=== PATIENT | female | born 1960 | race Two or more races ===

== ENCOUNTER 2018-10-06 10:26 | Emergency (ER) | payer SELFPAY ==
[~2018-10-06] VITALS: Ht 160 cm; Wt 81.6 kg
[2018-10-06 10:37] VITALS: BP 114/73
[2018-10-06] MEDS ORDERED: DiphenhydrAMINE 50mg/ml Inj IVP ONE (11:00)
[2018-10-06] MEDS ORDERED: Solu-MEDROL 125mg Inj IVP ONE (11:00)
[2018-10-06 12:42] VITALS: BP 124/81
[2018-10-06] MEDS ORDERED: ONDANSETRON ODT4 MG BC (13:08)
[2018-10-06] MEDS ORDERED: DICYCLOMINE HCL10 MG PO (13:08)
[2018-10-06] MEDS ORDERED: DIPHENHYDRAMINE25 M1 ORAL (13:08)
[2018-10-06] MEDS ORDERED: PREDNISONE20 MG ORAL (13:08)
[2018-10-06] MEDS ORDERED: RANITIDINE HCL150 MG ORAL (13:08)
[2018-10-06 13:15] VITALS: BP 125/85
--- NOTE | 2018-10-07 07:45 | Emergency Room Report ---
History of Present Illness General Chief Complaint: Allergic Reaction Source: Patient Present Illness HPI 57-year-old female presents ED for evaluation. Patient brought from PMD office. PMD called stating that patient may have had a reaction to an allergy injection she received today. States she has received these injections in the past but states that shortly after receiving injection today she started to feel nauseous with vomiting and diarrhea. States that she also did eat some spicy food yesterday evening. Denies chest pain or shortness of breath. Denies tongue swelling or throat swelling. Denies rash. No other aggravating relieving factors. Denies any other associated symptoms Allergies: Coded Allergies: AMOXICILLIN (Verified Allergy, Unknown, 10/06/18) Cultivated Oat Pollen (Verified Allergy, Unknown, 10/06/18) SULFA (SULFONAMIDE ANTIBIOTICS) (Verified Allergy, Unknown, 10/06/18) Patient History Past Medical History: HTN, other Past Surgical History: none Pertinent Family History: none Social History: Denies: smoking, alcohol use, drug use Immunizations: UTD Reviewed Nursing Documentation: PMH: Agreed; PSxH: Agreed Nursing Documentation-PMH Past Medical History: No History, Except For Hx Cardiac Problems: Yes - cholesterol Hx Hypertension: Yes 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 Review of Systems All Other Systems: negative except mentioned in HPI Physical Exam Vital Signs Date Time Temp Pulse Resp B/P (MAP) Pulse Ox O2 Delivery O2 Flow Rate FiO2 10/06/18 10:31 97.3 100 25 99 Room Air 10/06/18 10:37 114/73 10/06/18 10:37 97 Sp02 EP Interpretation: reviewed, normal General Appearance: mild distress Head: normocephalic, atraumatic Eyes: bilateral eye normal inspection, bilateral eye PERRL ENT: hearing grossly normal, normal pharynx, no angioedema, normal voice Neck: full range of motion, supple/symm/no masses Respiratory: chest non-tender, lungs clear, normal breath sounds, speaking full sentences Cardiovascular #1: regular rate, rhythm, no edema Cardiovascular #2: 2+ carotid (R), 2+ carotid (L), 2+ radial (R), 2+ radial (L) , 2+ dorsalis pedis (R), 2+ dorsalis pedis (L) Gastrointestinal: normal bowel sounds, non tender, soft, non-distended, no guarding, no rebound Rectal: deferred Genitourinary: normal inspection, no CVA tenderness Musculoskeletal: back normal, gait/station normal, normal range of motion, non- tender Neurologic: alert, oriented x3, responsive, motor strength/tone normal, sensory intact, speech normal Psychiatric: judgement/insight normal, memory normal, mood/affect normal, no suicidal/homicidal ideation Reflexes: 3+ bicep (R), 3+ bicep (L), 3+ tricep (R), 3+ tricep (L), 3+ knee (R) , 3+ knee (L) Skin: normal color, no rash, warm/dry, well hydrated Lymphatic: no adenopathy Medical Decision Making Diagnostic Impression: Primary Impression: Gastroenteritis Additional Impression: Allergic reaction Qualified Codes: T78.40XA - Allergy, unspecified, initial encounter ER Course Hospital Course 57-year-old F presents to ED with vomiting and diarrhea shortly after recieving allergy injections today at PMD office differential diagnosis: allergic reaction, anaphylaxis, gastroenteritis Clinical course Patient placed on stretcher. On cardiac/vascular sonographer. After initial history and physical I ordered IV fluids, Zofran and pepcid, benedryl, solumedrol, Upon reassessment, patient states she feels better. Tolerating by mouth intake here Consideration for gastroenteritis versus allergic reaction to the injections. We will treat for both Discussed with PMD Dr. Pritchard; agrees that patient can be safely dicharged to home I feel this is a highly complex case requiring extensive working including EKG/ Rhythm strip, Xray/CT/US, Blood/urine lab work, repeat exams while in ED, and administration of strong opiates/narcotics for pain control, admission to hospital or close patient follow up. Diagnosis - gastroenteritis, allergic reaction Stable and discharged to home with prescriptions for Zantac, zofran, prednisone , benedryl, bentyl. Followup with PMD. Return to ED if symptoms recur or worsen Last Vital Signs Date Time Temp Pulse Resp B/P (MAP) Pulse Ox O2 Delivery O2 Flow Rate FiO2 10/06/18 13:15 97.0 85 20 125/85 100 Room Air 10/06/18 10:37 97 Status: improved Disposition: HOME, SELF-CARE Condition: Stable Scripts Prednisone* (PREDNISONE*) 20 Mg Tablet 40 MG ORAL DAILY, #10 TAB Prov: Vernon Houston MD 10/06/18 Diphenhydramine Hcl* (DIPHENHYDRAMINE HCL*) 25 Mg Capsule 25 MG ORAL Q6H PRN for Itching, #30 CAP 0 Refills Prov: Vernon Houston MD 10/06/18 Ranitidine Hcl* (ZANTAC*) 150 Mg Tablet 150 MG ORAL TWICE A DAY for 10 Days, TAB Prov: Vernon Houston MD 10/06/18 Dicyclomine Hcl* (DICYCLOMINE HCL*) 10 Mg Capsule 10 MG PO QID for 5 Days, CAP Prov: Vernon Houston MD 10/06/18 Ondansetron Odt* (ZOFRAN ODT*) 4 Mg Tab.rapdis 4 MG BC EVERY 6 HOURS PRN for Nausea & Vomiting, #20 TAB 0 Refills Prov: Vernon Houston MD 10/06/18 Referrals: Alex Pritchard MD NON PHYSICIAN (PCP) Patient Instructions: Viral Gastroenteritis, Adult, [id number] Vernon Houston MD Oct 07, 2018 07:45
== END 2018-10-06 13:16 | disposition home or self-care (01) ==
LOC: EMR 12:00
DX: K52.9 Noninfective gastroenteritis and colitis, unspecified (principal); T78.40XA Allergy, unspecified, initial encounter; X58.XXXA Exposure to other specified factors, initial encounter; I10 Essential (primary) hypertension; E03.9 Hypothyroidism, unspecified; Z88.1 Allergy status to other antibiotic agents; Z88.2 Allergy status to sulfonamides
CPT/HCPCS: 96361; 96374; 96375; 96376; 99284; J1200; J2405; J2930; S0028